=== PATIENT | female | born 1995 | race Caucasian/White ===

== ENCOUNTER 2020-04-28 14:49 | Outpatient (CLI) | payer BC, SELFPAY ==
[2020-04-28 15:52] LABS: Influenza Control Positive
[2020-04-28 15:55] LABS: Alanine Aminotransferase 22 U/L (4-35); Albumin Level 4.5 g/dL (3.5-5.1); Alkaline Phosphatase 84 U/L (38-126); Anion Gap 10 mmol/L (8-16); Aspartate Amino Transferase 25 U/L (14-36); Bilirubin,Total 0.5 mg/dL (0.2-1.3); Blood Urea Nitrogen 17 mg/dL (7-17); CRP < 0.5 mg/dL (<1.0); Calcium 9.1 mg/dL (8.4-10.2); Carbon Dioxide 25 mmol/L (22-30); Chloride 104 mmol/L (98-107); Estimated Glomerular Filt Rate > 60; Glucose 94 mg/dL (65-105); Lactate Dehydrogenase 363 U/L (313-618); Potassium 3.6 mmol/L (3.4-5.0); Sodium 139 mmol/L (137-145)
[2020-04-28 16:38] LABS: Erythrocyte Sedimentation Rate 7 mm/hr (0-20)
== END 2020-04-28 14:50 | disposition home or self-care (01) ==
DX: R53.83 Other fatigue (principal); R19.7 Diarrhea, unspecified
CPT/HCPCS: 80053; 83615; 85652; 86140; 87804

== ENCOUNTER 2021-12-23 12:22 | Emergency (ER) | payer BC, SELFPAY ==
[2021-12-23 12:28] VITALS: BP 129/75; PULSE 83; RESP 18; TEMP 37.1; O2SAT 100
--- NOTE | 2021-12-23 12:55 | ED.URI ---
HPI - URI/Sore Throat General Chief Complaint: Nausea/Vomiting/Diarrhea Stated Complaint: Abdominal Pain/Diarrhea Time Seen by Provider: 12/23/21 12:55 Source: patient and RN notes reviewed Mode of arrival: ambulatory Limitations: no limitations History of Present Illness HPI Narrative: 26-year-old female presented for complaint of abdominal cramping, nausea, and diarrhea for about 3 days. Patient returned from [place] 3 days ago as well. Endorses her travel partner has similar symptoms. Denies cough, sob, wheezing, fever or chills. MD elicited complaint: cough Related Data Allergies Allergy/AdvReac Type Severity Reaction Status Date / Time No Known Allergies Allergy Verified 12/23/21 12:59 Review of Systems Review of Systems: ROS negative except as in HPI Exam Narrative: GENERAL: well-appearing, nontoxic no acute distress. HEAD: Normocephalic EYES: conjunctivae clear ENT: Mucous membranes moist. CHEST: Clear to auscultation, breath sounds equal. HEART: Regular rate and rhythm. No murmur heard. ABD: Abdomen soft, flat, diffusely tender with palpation bowel sounds hyperactive SKIN: Warm, dry, no rash. NEURO: Alert and oriented x3. PSYCH: Normal mood and affect Course Course Emergency Course: Patient is aware of diagnosis, understands and agrees to treatment plan. Anticipatory guidance given. Patient agrees to follow-up as directed and is aware of reasons to seek care at the emergency department. Portions of this record may have been created with voice recognition software Level of Care: Express Care Visit Vital Signs Vital signs: Vital Signs Temperature 98.7 F 12/23/21 12:28 Pulse Rate 83 12/23/21 12:28 Respiratory Rate 18 12/23/21 12:28 Blood Pressure 129/75 12/23/21 12:28 Pulse Oximetry 100 12/23/21 12:28 Oxygen Delivery Room Air 12/23/21 12:28 Temperature 98.7 F 12/23/21 12:28 Pulse Rate 83 12/23/21 12:28 Respiratory Rate 18 12/23/21 12:28 Blood Pressure 129/75 12/23/21 12:28 Pulse Oximetry 100 12/23/21 12:28 Oxygen Delivery Room Air 12/23/21 12:28 reviewed MDM - URI/Sore Throat MDM Narrative Medical decision making narrative: covid negative. Advised supportive measures for GI symptoms, and signs/symptoms to go to the ER. Advised to f/u with pcp for possible stool culture order. Pt is appropriate for outpt treatment and f/u. Differential Diagnosis Differential diagnosis: Likely viral infection and other (gastroenteritis, traveler's diarrhea, colitis) Discharge Plan Discharge Clinical Impression: Diarrhea Patient Disposition: Home, Self-Care Condition: Stable Instructions: Antibiotic Form, Gastroenteritis (ED) Additional Instructions: Stay hydrated. Take small sips of fluid containing electrolytes frequently. Clear liquids (broth, jello, tea, sprite, pedialyte) Prentiss foods (bananas, rice, applesauce, toast, crackers); avoid fatty, greasy, fried or spicy foods. Start probiotic-Lactobacillus or activia yogurt Take the antibiotic as directed Imodium over the counter as needed for diarrhea, according to package directions Zofran (ondansetron) as needed for nausea. You should go to the hospital if you experience persistent nausea and vomiting that does not resolve and does not allow you to tolerate any food or fluids, fevers, increasing abdominal pain, persistent diarrhea, dizziness, fainting, or for any other concerns. Follow up with primary care provider, call Saturday to discuss possible order for stool culture Prescriptions: New ondansetron 4 mg tablet,disintegrating 4 mg PO Q8H PRN (Reason: nausea and vomiting) Qty: 20 0RF ciprofloxacin HCl 750 mg tablet 750 mg PO DAILY 3 Days Qty: 3 0RF Follow-up/Referrals: Breanna,Livia Houston APN [Primary Care Provider] - Time of Disposition: 13:07
== END 2021-12-23 13:11 | disposition home or self-care (01) ==
PROVIDERS: Emergency Provider Nurse Practitioner Family; PCP Nurse Practitioner Family
DX: R19.7 Diarrhea, unspecified (principal)
CPT/HCPCS: 99213; G0463

== ENCOUNTER 2022-08-11 14:17 | Emergency (ER) | payer BC, SELFPAY ==
[2022-08-11 14:23] VITALS: BP 119/77; PULSE 102; RESP 16; TEMP 36.8; O2SAT 99
--- NOTE | 2022-08-11 15:43 | ED.URI ---
HPI - URI/Sore Throat General Chief Complaint: Upper Respiratory Infection Stated Complaint: Sore Throat/Congestion Time Seen by Provider: 08/11/22 15:43 Source: patient, RN notes reviewed and old records reviewed Mode of arrival: ambulatory Limitations: no limitations History of Present Illness HPI Narrative: 27 year old female who presents to [facility] care with complaints of sore throat ,post nasal drainage, cough, and left ear pain for the past 4 days with no known fever. Patient reports that she has been taking Sudafed, and some nasal spray for her symptoms along with allergy med. Patient denies any chills or sweats or any body aches. Patient denies any ill contacts. MD elicited complaint: cough, sore throat, nasal congestion and other (left ear pain) Onset (ago): day(s) (4) Pain scale (0-10): 7 Able to tolerate fluids by mouth: Yes Treatments prior to arrival: other (allergy med,nasal spray, Sudafed) Related Data Home Medications Medication Instructions Recorded Confirmed No Home Medications 08/11/22 08/11/22 Allergies Allergy/AdvReac Type Severity Reaction Status Date / Time No Known Allergies Allergy Verified 12/23/21 12:59 Review of Systems Review of Systems: CONSTITUTIONAL: Denies malaise, chills, sweats, or fever. EYES: Denies visual changes, redness, or discharge. ENT: Reports rhinorrhea, congestion, sinus pain, left otalgia and sore throat. CARDIOVASCULAR: Denies chest pain, palpitations, or edema. RESPIRATORY: Reports cough.? Denies dyspnea. GASTROINTESTINAL: Denies abdominal pain, nausea, vomiting, diarrhea SKIN: Denies rash or itching. MUSCULOSKELETAL: Denies myalgia. NEUROLOGIC: Denies headache. All systems reviewed & are unremarkable except as noted in HPI and below PMFSH Past Medical History Medical History (Updated 08/13/22 @ 16:19 by Caterina Ramon NP) COVID-2020 Social History Social History (Updated 08/13/22 @ 16:19 by Caterina Rmaon NP) Smoking status: Never smoker Alcohol intake: current Alcohol use details: rare social Substance use type: does not use Living arrangements: with family Gender identity (if verbalized by the patient): Female Comments At time of signature, agree with nursing past medical, surgical, social and family history. There is no relevant family history pertinent to the presenting complaint Exam Narrative: GENERAL: Well-appearing, well-nourished, and in no acute distress. HEAD: Normocephalic EYES: PERRLA, conjunctivae clear ENT: Nares clear, turbinates edematous and erythematous, clear discharge. Mucous membranes moist. TM pearly elizondo with dull light reflex bilaterally; no tragal tenderness. Oropharynx erythematous without lesions. Tonsils enlarged and without exudate, no drooling, no hoarseness, no trismus, uvula midline.post nasal drainage NECK: Supple. No lymphadenopathy CHEST: Clear to auscultation, breath sounds equal. No wheezing, rhonchi, rales, or stridor. No respiratory distress, speaks in full sentences.Cough noted SAO2 99% on room air HEART: Regular rate and rhythm. No murmur heard. SKIN: Warm, dry, no rash. NEURO: Alert and oriented x3. PSYCH: Normal mood and affect Course Course Emergency Course: Patient is aware of diagnosis, understands and agrees to treatment plan.? Anticipatory guidance given.? Patient agrees to follow-up as directed and is aware of reasons to seek care at the emergency department. Portions of this record may have been created with voice recognition software Level of Care: Express Care Visit Vital Signs Vital signs: Vital Signs Temperature 36.8 C 08/11/22 14:23 Pulse Rate 102 H 08/11/22 14:23 Respiratory Rate 16 08/11/22 14:23 Blood Pressure 119/77 08/11/22 14:23 Pulse Oximetry 99 08/11/22 14:23 Oxygen Delivery Room Air 08/11/22 14:23 Temperature 36.8 C 08/11/22 14:23 Pulse Rate 102 H 08/11/22 14:23 Respiratory Rate 16 08/11/22 14
== END 2022-08-11 16:00 | disposition home or self-care (01) ==
PROVIDERS: Emergency Provider Registered Nurse; PCP Nurse Practitioner Family
DX: J06.9 Acute upper respiratory infection, unspecified (principal); J02.9 Acute pharyngitis, unspecified; Z86.16 Personal history of COVID-19
CPT/HCPCS: 87081; 87880; 99213; G0463

== ENCOUNTER 2022-08-23 08:31 | Emergency (ER) | payer BC, SELFPAY ==
--- NOTE | 2022-08-23 08:32 | ED.URI ---
HPI - URI/Sore Throat General Chief Complaint: Upper Respiratory Infection Stated Complaint: sore throat Time Seen by Provider: 08/23/22 08:33 Source: patient and RN notes reviewed History of Present Illness HPI Narrative: Patient is a 27-year-old female who presents to urgent care with complaints of a sore throat for 2 weeks and white spots in the back of her throat for 2 days. Patient states she has been taking cough drops and ibuprofen for the pain. Denies any fever, nausea or vomiting. No other acute complaints. No acute distress noted. Patient aware of the plan of care. Some parts of this dictation were generated by voice recognition software and may contain typographical and/or grammatical inaccuracies. Related Data Home Medications Medication Instructions Recorded Confirmed No Home Medications 08/11/22 08/11/22 Allergies Allergy/AdvReac Type Severity Reaction Status Date / Time No Known Allergies Allergy Verified 08/23/22 08:42 Review of Systems Review of Systems: CONSTITUTIONAL: Denies fever, chills, or sweats. EYES: Denies visual changes, redness, or discharge. ENT: Denies rhinorrhea, congestion, otalgia. Reports of sore throat postnasal drainage CARDIOVASCULAR: Denies chest pain, palpitations, or edema. RESPIRATORY: Denies cough or dyspnea. GASTROINTESTINAL: Denies abdominal pain, nausea, vomiting, or diarrhea. GENITOURINARY: Denies dysuria or hematuria. SKIN: Denies rash or itching. MUSCULOSKELETAL: Denies back pain, joint pain, or myalgia. NEUROLOGIC: Denies headache, numbness, or weakness. All other systems reviewed are negative, except as documented in HPI. [facility] Past Medical History Medical History (Updated 08/23/22 @ 08:58 by HESHAM Abbott) COVID-19 2020 Social History Social History (Updated 08/13/22 @ 16:19 by Caterina Ramon NP) Smoking status: Never smoker Alcohol intake: current Alcohol use details: rare social Substance use type: does not use Living arrangements: with family Gender identity (if verbalized by the patient): Female Comments At the time of my signature, I reviewed and agree with the nursing past medical, surgical, social, and family history. There is no relevant family history pertinent to the patient complaint. Exam Narrative: GENERAL: This is a well-nourished, well-developed patient, in no apparent distress. HEAD: normocephalic, atraumatic. EYES: PERRL. Sclera clear/white. Vision is grossly intact. EARS: External ears normal, auditory canals clear and without drainage, TMs normal without perforation. Hearing grossly intact. NOSE: External nose normal with no obvious nasal discharge, nares without redness, no rhinorrhea. THROAT: Mucous membranes moist, posterior pharynx clear. Mild postnasal drainage NECK: Neck supple SKIN: warm, intact with no suspicious lesions or rash, good texture and turgor. NEURO: awake, alert, and oriented to person, place and time. There were no obvious focal neurologic abnormalities. EXTREMITIES: No clubbing, cyanosis, or edema. Course Course Level of Care: Express Care Visit Vital Signs Vital signs: Vital Signs Temperature 97.9 F 08/23/22 08:36 Pulse Rate 103 H 08/23/22 08:36 Respiratory Rate 14 08/23/22 08:36 Blood Pressure 123/84 08/23/22 08:36 Pulse Oximetry 100 08/23/22 08:36 Oxygen Delivery Room Air 08/23/22 08:36 Temperature 97.9 F 08/23/22 08:36 Pulse Rate 103 H 08/23/22 08:36 Respiratory Rate 14 08/23/22 08:36 Blood Pressure 123/84 08/23/22 08:36 Pulse Oximetry 100 08/23/22 08:36 Oxygen Delivery Room Air 08/23/22 08:36 Reviewed MDM - URI/Sore Throat MDM Narrative Medical decision making narrative: Reviewed lab results with the patient. She is aware that strep swab was negative. Educated patient on culture we will call within 72 hours if culture is positive antibiotics are necessary. Advised patient to take a daily antihistamine such as Zyrtec
[2022-08-23 08:36] VITALS: BP 123/84; PULSE 103; RESP 14; TEMP 36.6; O2SAT 100
== END 2022-08-23 09:00 | disposition home or self-care (01) ==
PROVIDERS: Emergency Provider Nurse Practitioner Family; PCP Nurse Practitioner Family
DX: J02.9 Acute pharyngitis, unspecified (principal); Z86.16 Personal history of COVID-19
CPT/HCPCS: 87081; 87880; 99213; G0463

== ENCOUNTER 2022-11-28 16:18 | Emergency (ER) | payer BC, SELFPAY ==
[2022-11-28 16:23] VITALS: BP 131/80; PULSE 100; RESP 18; TEMP 36.3; O2SAT 100
--- NOTE | 2022-11-28 16:39 | ED.EAR ---
HPI - Ear Problem General Chief complaint: Upper Respiratory Infection Stated complaint: Left Ear Problem/Dizziness Source: patient and RN notes reviewed History of Present Illness HPI Narrative: 27 yo F Presents to urgent care with complaints of left ear pulsating and possible FB. Pt states she has also been having the feeling she is riding a wave. Pt reports going on vacation recently but was having this feeling before her vacation. Pt reports being on a boat on vacation and it feels like she is still on it. Pt denies any ear pain. Pt is scared she might have a bug in her ear that she could have gotten at a motel she stayed at. Denies any fevers, chills, sore throat, congestion, or vomiting. Related Data Allergies Allergy/AdvReac Type Severity Reaction Status Date / Time No Known Allergies Allergy Verified 11/28/22 16:35 Review of Systems Review of Systems: CONSTITUTIONAL: Denies fever, chills, or sweats. EYES: Denies visual changes, redness, or discharge. ENT: Left ear pulsing and sensation of possible FB CARDIOVASCULAR: Denies chest pain, palpitations, or edema. RESPIRATORY: Denies cough or dyspnea. GASTROINTESTINAL: Denies abdominal pain, nausea, vomiting, or diarrhea. GENITOURINARY: Denies dysuria or hematuria. SKIN: Denies rash or itching. MUSCULOSKELETAL: Denies back pain, joint pain, or myalgia. NEUROLOGIC: Denies headache, numbness, or weakness. Pertinent positives per HPI. [facility] Past Medical History Medical History (Updated 11/28/22 @ 16:40 by Lachelle Joy, EV) COVID-2020 Social History Social History (Updated 08/13/22 @ 16:19 by Caterina Ramon NP) Smoking status: Never smoker Alcohol intake: current Alcohol use details: rare social Substance use type: does not use Living arrangements: with family Gender identity (if verbalized by the patient): Female Comments At the time of my signature, I reviewed and agree with the nursing past medical, surgical, social, and family history. There is no relevant family history pertinent to the patient complaint. Exam Narrative: GENERAL: This is a well-nourished, well-developed patient, in no apparent distress. HEAD: normocephalic, atraumatic. EYES: Sclera clear/white. Vision is grossly intact. EARS: External ears normal, auditory canals clear and without drainage, TMs normal without perforation. Hearing grossly intact. NOSE: External nose normal with no obvious nasal discharge, nares without redness, no rhinorrhea. THROAT: Mucous membranes moist, posterior pharynx clear. NECK: Neck supple, non-tender without lymphadenopathy, masses or thyromegaly. CARDIOVASCULAR: Regular rate and rhythm without murmurs, gallops, or rubs. RESPIRATORY: Clear to auscultation. Breath sounds equal bilaterally. No wheezes, rales, or rhonchi. GASTROINTESTINAL: Abdomen soft, non-tender, nondistended. Bowel sounds are active. No hepato-splenomegaly, or palpable masses. No guarding. SKIN: warm, intact with no suspicious lesions or rash, good texture and turgor. NEURO: awake, alert, and oriented to person, place and time. There were no obvious focal neurologic abnormalities. Course Course Level of Care: Express Care Visit Vital Signs Vital signs: Vital Signs Temperature 97.3 F L 11/28/22 16:23 Pulse Rate 100 11/28/22 16:23 Respiratory Rate 18 11/28/22 16:23 Blood Pressure 131/80 11/28/22 16:23 Pulse Oximetry 100 11/28/22 16:23 Oxygen Delivery Room Air 11/28/22 16:23 Temperature 97.3 F L 11/28/22 16:23 Pulse Rate 100 11/28/22 16:23 Respiratory Rate 18 11/28/22 16:23 Blood Pressure 131/80 11/28/22 16:23 Pulse Oximetry 100 11/28/22 16:23 Oxygen Delivery Room Air 11/28/22 16:23 Reviewed Medical Decision Making MDM Narrative Medical decision making narrative: Take the meclizine as directed. no driving while taking the meclizine. 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
== END 2022-11-28 16:40 | disposition home or self-care (01) ==
PROVIDERS: Emergency Provider Nurse Practitioner Family
DX: R42 Dizziness and giddiness (principal); Z86.16 Personal history of COVID-19
CPT/HCPCS: 99213; G0463

== ENCOUNTER 2023-04-15 12:18 | Emergency (ER) | payer BC, SELFPAY ==
--- NOTE | ~2023-04-15 | XR_ITS ---
EXAMINATION: XR foot RT min 3V DATE: 04/15/2023 13:43 INDICATION: Right foot injury. TECHNIQUE: 4 views of right foot were obtained. COMPARISON: None. FINDINGS: Bone alignment is normal. No fracture. There is mild flattening of head of second metatarsa l, consistent with osteonecrosis (Freiberg's infraction). Joint spaces are normal. IMPRESSION: 1. No fracture. Reviewed, dictated and finalized at location E. [employer] IMPRESSION: 1. No fracture.
[2023-04-15 12:20] VITALS: BP 113/82; PULSE 90; RESP 18; TEMP 36.7; O2SAT 100
--- NOTE | 2023-04-15 13:37 | ED.FEMALEGU ---
HPI - Female Genitourinary General Chief complaint: Urogenital-Female Stated complaint: Right Foot Injury Time Seen by Provider: 04/15/23 13:30 Source: patient Mode of arrival: ambulatory Limitations: no limitations History of Present Illness HPI Narrative: 27-year-old female presents with complaint of urinary frequency for the past 2 days. Reports she has also been drinking a lot of water so could be from that. No dysuria, hematuria or urgency. Also presents with complaint of pain to right foot for 3 days. Instilling a large fish tank at her home and drop the base on to her right foot. Bruising and swelling noted. Ambulatory with slight limp. Wants to make sure she does not have fracture. All systems reviewed and negative except as noted above. Related Data Home Medications Medication Instructions Recorded Confirmed No Home Medications 04/15/23 04/15/23 Allergies Allergy/AdvReac Type Severity Reaction Status Date / Time No Known Allergies Allergy Verified 04/15/23 13:43 Review of Systems Review of Systems: CONSTITUTIONAL: Denies fever, chills, or sweats. EYES: Denies visual changes, redness, or discharge. ENT: Denies rhinorrhea, congestion, sore throat, or otalgia. CARDIOVASCULAR: Denies chest pain, palpitations, or edema. RESPIRATORY: Denies cough or dyspnea. GASTROINTESTINAL: Denies abdominal pain, nausea, vomiting, or diarrhea. GENITOURINARY: Denies dysuria, urgency or hematuria. Reports urinary frequency. SKIN: Denies rash or itching. MUSCULOSKELETAL: Denies back pain, joint pain, or myalgia. Reports pain and bruising to dorsal aspect of right foot. NEUROLOGIC: Denies headache, numbness, or weakness. PSYCHIATRIC: Denies anxiety or depression. All other systems reviewed are negative, except as documented in HPI. [facility] Past Medical History Medical History (Updated 04/15/23 @ 13:51 by Mable Cruz NP) COVID-2020 Social History Social History (Updated 08/13/22 @ 16:19 by Caterina Ramon NP) Smoking status: Never smoker Alcohol intake: current Alcohol use details: rare social Substance use type: does not use Living arrangements: with family Gender identity (if verbalized by the patient): Female Comments At time of signature, agree with nursing past medical, surgical, social and family history. There is no relevant family history pertinent to the presenting complaint. Exam Narrative: GENERAL: This is a well-nourished, well-developed patient, in no apparent distress. HEAD: normocephalic, atraumatic. EYES: PERRL. Sclera clear/white. Vision is grossly intact. EARS: External ears normal NOSE: External nose normal NECK: Neck supple, non-tender without lymphadenopathy, masses or thyromegaly. CARDIOVASCULAR: Regular rate and rhythm without murmurs, gallops, or rubs. RESPIRATORY: Clear to auscultation. Breath sounds equal bilaterally. No wheezes, rales, or rhonchi. SKIN: warm, Dry, intact with no suspicious lesions or rash, good texture and turgor. NEURO: awake, alert, and oriented to person, place and time. There were no obvious focal neurologic abnormalities. EXTREMITIES: No joint tenderness, effusion. Bruising to the distal aspect of dorsal right foot with mild swelling. Tender on palpation of distal aspect of 2nd 3rd 4th metatarsals. No deformity noted. Range of motion normal. Distal neurovascularly intact. Course Course Level of Care: Express Care Visit Vital Signs Vital signs: Reviewed MDM - Female Genitourinary MDM Narrative Medical decision making narrative: Discussed x-ray results with patient. Negative for fracture to right foot. Urinalysis is normal. Recommend patient monitor her symptoms and follow up with her primary care physician if urine symptoms worsen. Patient is aware of diagnosis, understands and agrees to treatment plan. Anticipatory guidance given. Patient agrees to follow-up as directed and is aware of reasons to seek care a
== END 2023-04-15 13:55 | disposition home or self-care (01) ==
PROVIDERS: Emergency Provider Nurse Practitioner Family; PCP Nurse Practitioner Family
DX: S90.31XA Contusion of right foot, initial encounter (principal); W22.8XXA Striking against or struck by other objects, initial encounter; Y92.009 Unspecified place in unspecified non-institutional (private) residence as the place of occurrence of the external cause
CPT/HCPCS: 73630; 81003; 99213; G0463

== ENCOUNTER 2023-08-02 14:51 | Emergency (ER) | payer BC, SELFPAY ==
[2023-08-02 15:03] VITALS: BP 119/71; PULSE 74; RESP 16; TEMP 36.7; O2SAT 98
--- NOTE | 2023-08-02 15:06 | ED.SKABFB ---
HPI - Skin/Abscess/Foreign Bdy General Chief complaint: Skin/Abscess/Foreign Body Stated complaint: Rash Time Seen by Provider: 08/02/23 15:06 Source: patient Mode of arrival: ambulatory Limitations: no limitations History of Present Illness HPI narrative: 28 yo F presents with c/o small red bumps under L eye and a few just starting under R eye. States bumps are painful. Not itching. All systems reviewed and negative except as noted above. Related Data Allergies Allergy/AdvReac Type Severity Reaction Status Date / Time No Known Allergies Allergy Verified 04/15/23 13:43 Review of Systems Review of Systems: CONSTITUTIONAL: Denies fever, chills, or sweats. EYES: Denies visual changes, redness, or discharge. ENT: Denies rhinorrhea, congestion, sore throat, or otalgia. CARDIOVASCULAR: Denies chest pain, palpitations, or edema. RESPIRATORY: Denies cough or dyspnea. GASTROINTESTINAL: Denies abdominal pain, nausea, vomiting, or diarrhea. GENITOURINARY: Denies dysuria or hematuria. SKIN: Denies rash or itching. reports small red bumps under both eyes. MUSCULOSKELETAL: Denies back pain, joint pain, or myalgia. NEUROLOGIC: Denies headache, numbness, or weakness. PSYCHIATRIC: Denies anxiety or depression. All other systems reviewed are negative, except as documented in HPI. [facility] Past Medical History Medical History (Updated 08/02/23 @ 15:12 by Mable Cruz NP) COVID-2020 Social History Social History (Updated 08/13/22 @ 16:19 by Caterina Ramon NP) Smoking status: Never smoker Alcohol intake: current Alcohol use details: rare social Substance use type: does not use Living arrangements: with family Gender identity (if verbalized by the patient): Female Comments At time of signature, agree with nursing past medical, surgical, social and family history. There is no relevant family history pertinent to the presenting complaint. Exam Narrative: GENERAL: This is a well-nourished, well-developed patient, in no apparent distress. HEAD: normocephalic, atraumatic. EYES: PERRL. Sclera clear/white. Vision is grossly intact. EARS: External ears normal NOSE: External nose normal NECK: Neck supple, non-tender without lymphadenopathy, masses or thyromegaly. CARDIOVASCULAR: Regular rate and rhythm without murmurs, gallops, or rubs. RESPIRATORY: Clear to auscultation. Breath sounds equal bilaterally. No wheezes, rales, or rhonchi. SKIN: warm, Dry, intact, good texture and turgor. very small erythematous papules under eyes. two noted under R eye and 3 to 4 under L eye. One under L eye has lopez. No drainage. no significant swelling. NEURO: awake, alert, and oriented to person, place and time. There were no obvious focal neurologic abnormalities. EXTREMITIES: No joint tenderness, effusion, or edema noted. Course Course Level of Care: Express Care Visit Vital Signs Vital signs: Vital Signs Temperature 36.7 C 08/02/23 15:03 Pulse Rate 74 08/02/23 15:03 Respiratory Rate 16 08/02/23 15:03 Blood Pressure 119/71 08/02/23 15:03 Pulse Oximetry 98 08/02/23 15:03 Oxygen Delivery Room Air 08/02/23 15:03 Temperature 36.7 C 08/02/23 15:03 Pulse Rate 74 08/02/23 15:03 Respiratory Rate 16 08/02/23 15:03 Blood Pressure 119/71 08/02/23 15:03 Pulse Oximetry 98 08/02/23 15:03 Oxygen Delivery Room Air 08/02/23 15:03 Reviewed MDM - Skin/Abscess/Foreign Bdy MDM Narrative Medical decision making narrative: Patient is aware of diagnosis, understands and agrees to treatment plan. Anticipatory guidance given. Patient agrees to follow-up as directed and is aware of reasons to seek care at the emergency department. Portions of this record may have been created with voice recognition software Discharge Plan Discharge Clinical Impression: Facial rash Patient Disposition: Home, Self-Care Condition: Stable Instructions: Antibiotic Form, Acute R
== END 2023-08-02 15:16 | disposition home or self-care (01) ==
PROVIDERS: Emergency Provider Nurse Practitioner Family; PCP Nurse Practitioner Family
DX: R21 Rash and other nonspecific skin eruption (principal)
CPT/HCPCS: 99213; G0463

== ENCOUNTER 2023-12-13 14:29 | Emergency (ER) | payer BC, SELFPAY ==
[2023-12-13 14:35] VITALS: BP 126/75; PULSE 88; RESP 16; TEMP 36.6; O2SAT 100
--- NOTE | 2023-12-13 15:45 | ED.GENADULT ---
HPI - General Adult General Chief complaint: Skin/Abscess/Foreign Body Stated complaint: Dizzy Time Seen by Provider: 12/13/23 15:45 Source: patient, RN notes reviewed and old records reviewed Mode of arrival: ambulatory Limitations: no limitations History of Present Illness HPI narrative: 28-year-old female to [facility] for complaint of left ear pain for 5 days. Patient states that yesterday left ear had a small cyst in posterior canal. Patient states that while she was in the shower she used her fingernail to scraped against the area and had purulent drainage. Patient states that discomfort is improving. Patient denies pertinent medical history, ear fullness, inner ear pain, sore throat, fever. Patient able to tolerate fluids by mouth. Patient in no acute distress. Related Data Home Medications Medication Instructions Recorded Confirmed Iud 12/13/23 Allergies Allergy/AdvReac Type Severity Reaction Status Date / Time No Known Allergies Allergy Verified 12/13/23 16:40 Review of Systems Review of Systems: All systems reviewed & are unremarkable except as noted in HPI and below Constitutional: Constitutional: Reports no additional constitutional complaints Eyes: Eyes: Reports no additional eye complaints ENT: Reports as per HPI and Reports otalgia ( left) Cardiovascular: Cardiovascular: Reports no additional cardiovascular complaints, Denies chest pain and Denies dyspnea Respiratory: Respiratory: Reports no additional respiratory complaints, Denies cough and Denies dyspnea Musculoskeletal: Musculoskeletal: Reports no additional musculoskeletal complaints Integumentary/Breasts: Skin/Breast: Reports new lesions ( left posterior EAC, improving) Neurologic: Reports system reviewed and no additional complaints, except as documented Psychiatric: Psychiatric: Reports no additional psychiatric complaints PMFSH Past Medical History Medical History COVID-2020 Social History Social History Smoking status: Never smoker Alcohol intake: current Alcohol use details: rare social Substance use type: does not use Living arrangements: with family Gender identity (if verbalized by the patient): Female Comments At the time of my signature, I reviewed and agree with the nursing past medical, surgical, social, and family history. There is no relevant family history pertinent to the patient complaint. Exam Const: General: cooperative, healthy appearing, comfortable, no acute distress, alert and well nourished Nutritional Appearance: well nourished Orientation/consciousness: patient oriented x3 Limitations: no limitations HENMT: Head: normal to inspection Ears: Abnormal EAC present erythema on the left ( left posterior) and TM abnormal with fluid behind the TM bilateral ( clear) Face/Nose/Sinus: Normal external nose present, Normal nares present, normal facial exam, No erythema and No edema Face and sinus: normal facial exam, no erythema and no edema Mouth: Yes Normal oral and palatal mucosa present Eyes: General: appearance normal, both eyes and all related structures Neck: Neck: normal visual inspection, full ROM and no meningeal signs Lymphatic: no lymphadenopathy noted and no lymphedema noted Chest: Chest palpation & inspection: normal inspection of the chest Resp: Effort & Inspection: normal respiratory effort and able to speak in complete sentences Auscultation: clear to auscultation bilaterally Cardio: Jugular venous distension: no JVD Rate: regular rate Rhythm: regular rhythm Back/Spine/Pelvis: Cervical Spine: cervical ROM normal Skin: General skin exam: normal color, no rashes or lesions noted and turgor normal Neuro: General: patient oriented x3, gait normal, moves all extremities and no meningeal signs Speech: normal speech Gait exam (Neuro): Normal
== END 2023-12-13 16:28 | disposition home or self-care (01) ==
PROVIDERS: Emergency Provider Nurse Practitioner Family
DX: H73.893 Other specified disorders of tympanic membrane, bilateral (principal); R42 Dizziness and giddiness; H61.892 Other specified disorders of left external ear; Z86.16 Personal history of COVID-19
CPT/HCPCS: 99213; G0463

== ENCOUNTER 2024-04-06 10:12 | Emergency (ER) | payer BC, SELFPAY ==
[2024-04-06 10:22] VITALS: BP 120/85; PULSE 92; RESP 16; TEMP 37; O2SAT 99
--- NOTE | 2024-04-06 10:46 | ED_ITS ---
HPI - URI/Sore Throat General Chief Complaint: Upper Respiratory Infection Stated Complaint: throat/congestion History of Present Illness HPI Narrative: 28-year-old female presented for complaint of sore throat nasal congestion with drainage for 2 days. Denies shortness of breath, wheezing nausea vomiting, fevers or chills. Took [place] last night without improvement. Reports concern for strep before she visits her grandmother. Related Data Home Medications Medication Instructions Recorded Confirmed Iud 12/13/23 Allergies Allergy/AdvReac Type Severity Reaction Status Date / Time No Known Allergies Allergy Verified 12/13/23 16:40 Review of Systems Review of Systems: CONSTITUTIONAL: Denies body aches, fever, chills, or sweats. EYES: Denies visual changes, redness, or discharge. ENT: Reports sore throat rhinorrhea CARDIOVASCULAR: Denies chest pain, palpitations, or edema. RESPIRATORY: Denies dyspnea. GASTROINTESTINAL: Denies abdominal pain, nausea, vomiting, or diarrhea. SKIN: Denies rash, itching, or wounds. MUSCULOSKELETAL: Denies back pain, joint pain, or myalgia. NEUROLOGIC: Denies headache [facility] Past Medical History Medical History COVID-2020 Social History Social History Smoking status: Never smoker Alcohol intake: current Alcohol use details: rare social Substance use type: does not use Living arrangements: with family Gender identity (if verbalized by the patient): Female Exam Narrative: GENERAL: well-appearing, no acute distress. EYES: conjunctivae clear ENT: Mucous membranes moist. TM pearly elizondo with normal light reflex bilaterally; no tragal tenderness. Oropharynx mildly erythematous without lesions. Tonsils not enlarged and without exudate. No drooling, no hoarseness, no trismus, uvula midline. No tripod positioning, hot potato voice, or soft palate swelling. NECK: Supple. No lymphadenopathy CHEST: Clear to auscultation, breath sounds equal. No respiratory distress, speaks in full sentences. HEART: Regular rate and rhythm. No murmur heard. SKIN: Warm, dry, no rash. NEURO: Alert and oriented x3. Course Course Emergency Course: Patient is aware of diagnosis, understands and agrees to treatment plan. Anticipatory guidance given. Patient agrees to follow-up as directed and is aware of reasons to seek care at the emergency department. Portions of this record may have been created with voice recognition software Level of Care: Express Care Visit Vital Signs Vital signs: Vital Signs Temperature 98.6 F 04/06/24 10:22 Pulse Rate 92 04/06/24 10:22 Respiratory Rate 16 04/06/24 10:22 Blood Pressure 120/85 04/06/24 10:22 Pulse Oximetry 99 04/06/24 10:22 Oxygen Delivery Room Air 04/06/24 10:22 Temperature 98.6 F 04/06/24 10:22 Pulse Rate 92 04/06/24 10:22 Respiratory Rate 16 04/06/24 10:22 Blood Pressure 120/85 04/06/24 10:22 Pulse Oximetry 99 04/06/24 10:22 Oxygen Delivery Room Air 04/06/24 10:22 MDM - URI/Sore Throat MDM Narrative Medical decision making narrative: neg strep result reviewed with pt. Advise supportive treatments. Patient is appropriate for outpatient treatment and follow-up. Differential Diagnosis Differential diagnosis: Likely upper respiratory infection, viral infection and pharyngitis Lab Data Labs: Lab Results 04/06/24 Range/Units 10:24 POC Grp A Strep Screen Negative (Negative) Discharge Plan Discharge Clinical Impression: Upper respiratory infection Patient Disposition: Home, Self-Care Condition: Stable Instructions: Antibiotic Form, Upper Respiratory Infection (ED) Additional Instructions: Rapid strep swab was negative today You will be notified in a few days if the culture comes back positive for strep, and appropriate antibiotics will be called in at that time. if symptoms are due to a viral illness, it is not treated with antibiotics. Viral symptoms can be present for up to 10-14 days. Recommend Flonase spray and Zyrtec for sinus congestion Cough syrup may cause drowsiness; avoid driving or take it at night time. Tylenol every 8 hours as needed for pain/fever Soft foods, cool liquids, warm tea. Gargle with warm saltwater twice a day. Chloraseptic spray and throat lozenges. Rest and stay hydrated. --Follow up with your PCP --Go to the ER immediately if you cannot swallow your saliva, trouble rangel athing/wheezing, throat swelling, pain is persistent and severe Prescriptions: No Action Iud Follow-up/Referrals: Carlos,Livia [place] APN [Primary Care Provider] - Time of Disposition: 11:15
[2024-04-06 10:53] LABS: EDSTREPNEGPOS1 Negative (Negative)
== END 2024-04-06 11:20 | disposition home or self-care (01) ==
PROVIDERS: Emergency Provider Nurse Practitioner Family; PCP Nurse Practitioner Family
DX: J06.9 Acute upper respiratory infection, unspecified (principal)
CPT/HCPCS: 87081; 87880; 99213; G0463

== ENCOUNTER 2024-05-15 14:42 | Emergency (ER) | payer BC, SELFPAY ==
[2024-05-15 14:47] VITALS: BP 121/82; PULSE 86; RESP 20; TEMP 36.9; O2SAT 100
--- NOTE | 2024-05-15 15:34 | ED_ITS ---
HPI - General Adult General Chief complaint: Dental/Oral Stated complaint: tooth pain/cough/diarrhea Time Seen by Provider: 05/15/24 15:34 Source: patient, RN notes reviewed and old records reviewed Mode of arrival: ambulatory Limitations: no limitations History of Present Illness HPI narrative: 28-year-old female presents to the [facility] with multiple complaints. Reports a cough that started last night. Increase left upper gum pain post root canal a couple of days ago. Has redness and swelling Has a paronychia to the finger, left hand, ring finger Patient has concerns for flu and COVID Related Data Home Medications ?Medication ?Instructions ?Recorded ?Confirmed ?Last Taken ?Type Iud 12/13/23 Unknown History Allergies Allergy/AdvReac Type Severity Reaction Status Date / Time No Known Allergies Allergy Verified 12/13/23 16:40 Review of Systems Review of Systems: All systems reviewed & are unremarkable except as noted in HPI and below Constitutional: Constitutional: Reports no additional constitutional complaints ENT: Reports as per HPI Cardiovascular: Cardiovascular: Reports no additional cardiovascular complaints, Denies chest pain and Denies dyspnea Respiratory: Respiratory: Reports no additional respiratory complaints, Denies chest congestion, Denies cough and Denies dyspnea Musculoskeletal: Musculoskeletal: Reports no additional musculoskeletal complaints Integumentary/Breasts: Skin/Breast: Reports system reviewed and no additional complaints, except as docu PMFSH Past Medical History Medical History COVID-2020 Social History Social History Smoking status: Never smoker Alcohol intake: current Alcohol use details: rare social Substance use type: does not use Living arrangements: with family Gender identity (if verbalized by the patient): Female Comments At the time of my signature, I reviewed and agree with the nursing past medical, surgical, social, and family history. There is no relevant family history pertinent to the patient complaint. Exam Const: General: cooperative, healthy appearing, comfortable, no acute distress, well developed, alert and well nourished Nutritional Appearance: well nourished Orientation/consciousness: patient oriented x3 Limitations: no limitations HENMT: Head: normal to inspection Ears: hearing grossly normal bilaterally, external ears normal, TM's normal bilaterally, EAC's normal, mastoids normal and no periauricular adenopathy Face/Nose/Sinus: normal facial exam and face symmetric Face and sinus: normal facial exam and face symmetric Mouth: Yes lip normal and Yes tongue normal Teeth and gingiva: gingiva abnormal (Left upper molar area significant edema, increased erythema, concern for ab) Eyes: General: appearance normal, both eyes and all related structures Neck: Neck: normal visual inspection, full ROM, no lymphadenopathy and no meningeal signs Chest: Chest palpation & inspection: normal inspection of the chest Resp: Effort & Inspection: normal respiratory effort and able to speak in complete sentences Auscultation: clear to auscultation bilaterally, no crackles, no rales, no rhonchi and no wheezes Cardio: Rate: regular rate Skin: General skin exam: normal color and no rashes or lesions noted Other: Paronychia 4th finger left hand, no fluctuance or drainage, erythema surrounding the nail, not circumferential Neuro: General: patient oriented x3, gait normal, moves all extremities and no meningeal signs Cognition (Neuro): normal cognition Speech: normal speech Gait exam (Neuro): Normal gait present Extrem: General: normal to inspection, full ROM, capillary refill normal and normal gait Psych: Appearance: grossly normal and well kempt Mental Status: mental status grossly normal Speech and movement: Normal speech and movement present and Clear speech present Affect: normal affect Attitude: cooperative Course Course Level of Care: Express Care Visit Vital Signs Vital signs: Vital Signs Temperature 98.4 F 05/15/24 14:47 Pulse Rate 86 05/15/24 14:47 Respiratory Rate 20 05/15/24 14:47 Blood Pressure 121/82 05/15/24 14:47 Pulse Oximetry 100 05/15/24 14:47 Oxygen Delivery Room Air 05/15/24 14:47 Temperature 98.4 F 05/15/24 14:47 Pulse Rate 86 05/15/24 14:47 Respiratory Rate 20 05/15/24 14:47 Blood Pressure 121/82 05/15/24 14:47 Pulse Oximetry 100 05/15/24 14:47 Oxygen Delivery Room Air 05/15/24 14:47 Reviewed Medical Decision Making MDM Narrative Medical decision making narrative: Patient sitting comfortably in exam room. Nontoxic, vitals stable. Patient in no acute distress Patient presents for multiple complaints. Patient with concern for abscess to the gingiva, has a paronychia to left hand. Patient appropriate for outpatient treatment and follow-up Discharge instructions reviewed with patient, as well as provided in writing per nursing staff. The instructions also include specific and strict return/GO TO THE ER as well as f/u information. All questions have been answered, and the patient deny any further questions with discharge and discharge plan. Some parts of this dictation were generated by voice recognition software and may contain typographical and/or grammatical inaccuracies. Differential Diagnosis Differential Diagnosis: Abscess, dental infection, paronychia Medical Records Medical records reviewed: Yes I reviewed the external patient's medical records. Vital Signs Vital Signs: Vital Signs Temperature 98.4 F 05/15/24 14:47 Pulse Rate 86 05/15/24 14:47 Respiratory Rate 20 05/15/24 14:47 Blood Pressure 121/82 05/15/24 14:47 Pulse Oximetry 100 05/15/24 14:47 Oxygen Delivery Room Air 05/15/24 14:47 Temperature 98.4 F 05/15/24 14:47 Pulse Rate 86 05/15/24 14:47 Respiratory Rate 20 05/15/24 14:47 Blood Pressure 121/82 05/15/24 14:47 Pulse Oximetry 100 05/15/24 14:47 Oxygen Delivery Room Air 05/15/24 14:47 Reviewed Lab Data Lab results reviewed: Yes I reviewed the patient's lab results. Labs: Reviewed Critical Care Time Critical Care Time Critical Care Time: No Discharge Plan Discharge Clinical Impression: Dental abscess, Paronychia, URI (upper respiratory infection) Patient Disposition: Home, Self-Care Condition: Stable Instructions: Antibiotic Form, Dental Abscess (ED), Paronychia (ED) Additional Instructions: Today your flu and COVID test were negative in clinic Finish the entire course of antibiotics & use the mouthwash. After every time you eat be sure to use salt water rinses. Apply ice to face to help with pain. Take Tylenol alternating with Motrin as needed for pain. You can alternate every 4 hours You need to follow-up with a dental provider as soon as possible for further evaluation and treatment. Follow up with a Primary Care Provider (PCP) about medical needs. A PCP can help keep you healthy by preventive medicine and screening. Go to the ER for New or worsening symptoms. Soak the finger 3 times a day for 15-20 minutes in warm soapy water and [place] salt. Take a probiotic or eat a your today to help reduce side effects of the antibiotics and diarrhea. If you develop abdominal pain, worsening symptoms please go directly to the emergency room Patient Language: Gu[place]ian Prescriptions: New clindamycin HCl 300 mg capsule 300 mg PO TID 7 Days Qty: 21 0RF Rx Instructions: TAKE WITH 150 MG clindamycin HCl 150 mg capsule 150 mg PO TID 7 Days Qty: 21 0RF ondansetron 4 mg tablet,disintegrating 4 mg PO Q8H PRN (Reason: nausea and vomiting) Qty: 7 0RF clindamycin HCl 300 mg capsule 300 mg PO TID 7 Days Qty: 21 0RF No Action Iud Follow-up/Referrals: Breanna,Livia [place] APN [Primary Care Provider] - 2 Weeks (express care follow up) Stand Alone Forms: Work/School Release IP Time of Disposition: 15:57
== END 2024-05-15 16:03 | disposition home or self-care (01) ==
PROVIDERS: Emergency Provider Nurse Practitioner; PCP Nurse Practitioner Family
DX: K04.7 Periapical abscess without sinus (principal); L03.012 Cellulitis of left finger; J06.9 Acute upper respiratory infection, unspecified
CPT/HCPCS: 99211; G0463